=== PATIENT | male | born 2000 | race Caucasian/White ===

== ENCOUNTER 2020-09-29 19:06 | Emergency (ER) | payer MEDICAID, SELFPAY | END 2020-09-29 19:56 | disposition home or self-care (01) | LOC: ERS 19:06 | DX: T18.128A Food in esophagus causing other injury, initial encounter (principal); J45.909 Unspecified asthma, uncomplicated | CPT/HCPCS: 99283 ==

== ENCOUNTER 2022-03-30 14:33 | Emergency (ER) | payer SELFPAY ==
[2022-03-30] MEDS ORDERED: Ketamine 50 MG/ML (10ML VIAL) ONE (14:49)
[2022-03-30] MEDS ORDERED: diphenhydrAMINE 12.5 MG/5 ML UDCUP ONE (14:49)
[2022-03-30] MEDS ORDERED: Metoclopramide HCl 10 MG/2 ML VIAL ONE (14:49)
[2022-03-30] MEDS ORDERED: Benzocaine 20% Spray 60 ML CAN ONE (14:49)
[2022-03-30] MEDS ORDERED: diphenhydrAMINE 50 MG/ML VIAL ONE (14:50)
[2022-03-30] MEDS ORDERED: Lidocaine 4% Topical Sol 50 ML BOT ONE (14:54)
== END 2022-03-30 17:19 | disposition home or self-care (01) ==
LOC: ERS 14:33
DX: T18.8XXA Foreign body in other parts of alimentary tract, initial encounter (principal); J45.909 Unspecified asthma, uncomplicated
CPT/HCPCS: 31575; 96365; 96366; 96375; J1200; J2765; Q0163

== ENCOUNTER 2024-02-26 15:23 | Emergency (ER) | payer SELFPAY ==
[2024-02-26] MEDS ORDERED: Boostrix 0.5 ML (Tdap) VIAL (>/=7 yrs of age) ONE (15:56)
[2024-02-26] MEDS ORDERED: Lidocaine 1% PF 5 ML VIAL ONE (16:35)
[2024-02-26] MEDS ORDERED: HYDROcodone/Acetaminophen 5/325 mg Tablet ONE (17:54)
[2024-02-26] MEDS ORDERED: Bacitracin 1 PK ONE (18:28)
== END 2024-02-26 19:35 | disposition short-term general hospital (02) ==
LOC: ERS 15:23 → EEVIPCON 15:23 → ERS 19:35
DX: S01.511A Laceration without foreign body of lip, initial encounter (principal); S02.612A Fracture of condylar process of left mandible, initial encounter for closed fracture; S09.90XA Unspecified injury of head, initial encounter; Z23 Encounter for immunization; Y04.0XXA Assault by unarmed brawl or fight, initial encounter
CPT/HCPCS: 70450; 70486; 72125; 90471; 90715